=== PATIENT | female | born 1975 | race African-American/Black ===

== ENCOUNTER 2017-02-26 16:24 | Emergency (ER) | payer MEDICAID ==
[~2017-02-26] VITALS: Ht 160 cm; Wt 62.0 kg
[~2017-02-26 16:24] MED LIST: ALBU17AE26
[2017-02-26 16:29] VITALS: BP 149/96
[2017-02-26] MEDS ORDERED: LIDOCAINE HCL 1% 20ML VIAL (Pyxis) INJ INFIL ONE (20:15)
[2017-02-26] MEDS ORDERED: BACITRACIN ZINC OINT UDPKT TOP ONE (20:15)
== END 2017-02-26 21:44 | disposition home or self-care (01) ==
LOC: ER 20:27
DX: L02.511 Cutaneous abscess of right hand (principal); J45.909 Unspecified asthma, uncomplicated; F17.200 Nicotine dependence, unspecified, uncomplicated; F14.10 Cocaine abuse, uncomplicated
CPT/HCPCS: 99283; J3490; Z7610

== ENCOUNTER 2024-01-06 17:59 | Emergency (ER) | payer MEDICAID ==
[~2024-01-06] VITALS: Ht 165.1 cm; Wt 50.0 kg
[2024-01-06 18:04] VITALS: O2SAT 100
[2024-01-06 18:50] VITALS: PULSE 102; RESP 20
[2024-01-06] MEDS: ALBUTEROL (0.083%) 2.5MG/3ML NEB HHN ONE (18:50)
[2024-01-06] MEDS: IPRATROPIUM/ALBUTEROL 0.5-3(2.5)MG/3ML NEB HHN ONE (18:51)
[2024-01-06 18:53] LABS: BASOPHILS % 1.3 % (0.0-2.0); EOSINOPHILS % 3.6 % (0.0-5.0); HEMATOCRIT. 38.1 % (36.0-48.0); LYMPHOCYTES % 31.8 % (20.0-50.0); MEAN CORPUSCULAR HEMOGLOBIN 27.4 pg (28.0-32.0); MEAN CORPUSCULAR HGB CONC 31.5 g/dL (31.0-37.0); MEAN PLATELET VOLUME 6.7 fl (7.4-10.4); MONOCYTES % 8.1 % (2.0-8.0); NEUTROPHILS % 55.2 % (40.0-76.0); PLATELET 490 x1000/uL (130-400); RED BLOOD CELL COUNT 4.38 mill/uL (4.2-5.4); RED CELL DISTRIBUTION WIDTH 13.3 % (11.6-14.6); WHITE BLOOD COUNT 8.3 x1000/uL (4.5-11.0)
[2024-01-06 19:07] LABS: HCG SCREEN NEGATIVE
[2024-01-06 19:11] LABS: ALANINE AMINOTRANSFERASE 14 IU/L (10-49); ALBUMIN 4.6 g/dL (3.2-4.8); ASPARTATE AMINOTRANSFERASE 19 IU/L (<34); BILIRUBIN TOTAL 0.2 mg/dL (0.1-1.0); CALCIUM 9.1 mg/dL (8.7-10.4); CARBON DIOXIDE 27 mEq/L (21-32); CHLORIDE 106 mEq/L (98-107); GLUCOSE 113 mg/dL (70-105); POTASSIUM 3.4 mEq/L (3.5-5.1); PROTEIN TOTAL 8.1 g/dL (6.0-8.3); SODIUM 141 mEq/L (136-145); UREA NITROGEN BLOOD 20 mg/dL (9-23)
[2024-01-06] MEDS: METHYLPREDNISOLONE SOD SUCC 125MG/2ML (ACT-O-VIAL) IV STA (19:17)
[2024-01-06] MEDS: MAGNESIUM 2 G PREMIX 50 ML IV ONE (19:17)
[2024-01-06 20:15] VITALS: BP 119/76; PULSE 98; RESP 16; TEMP 98
[2024-01-06] MEDS ORDERED: ALBU6.7H15 INH (20:15)
[2024-01-06] MEDS ORDERED: P50 MT (20:15)
== END 2024-01-06 20:20 | disposition home or self-care (01) ==
LOC: ER 17:59
DX: J45.909 Unspecified asthma, uncomplicated (principal)
CPT/HCPCS: 80053; 84703; 85025; 36415; 71045; 94640; 93005; 96365; 96375; 99285; J3475; J2930; Z7610 ×5